=== PATIENT | male | born 1955 | race Caucasian/White ===

== ENCOUNTER 2020-10-25 08:50 | Inpatient (IN) | payer MEDICARE ==
[2020-10-25] MEDS ORDERED: Nitroglycerin 2% Ointment 1 INCH/1 GM Packet ONE (09:50)
[2020-10-25 10:29] LABS: CKMB 36.3 ng/mL (0-6.6)
[2020-10-25] MEDS ORDERED: Sodium Chloride 0.9% 1,000 ML IV SCH ×2 (11:45→15:00)
[2020-10-25] MEDS ORDERED: Iopamidol 370 76% 100 ML VIAL ONE (11:57)
[2020-10-25 13:07] LABS: Troponin I 4.214 ng/mL (< 0.028)
[2020-10-25] MEDS ORDERED: Guaifenesin DM 100-10/5 ML UDCUP PO PRN (13:08)
[2020-10-25] MEDS ORDERED: Acetaminophen 325 MG TAB PO PRN (13:08)
[2020-10-25] MEDS ORDERED: Ondansetron PF 4 MG/2 ML Vial IVP PRN (13:08)
[2020-10-25] MEDS ORDERED: Senokot S 8.6-50 MG TAB PO PRN (13:08)
[2020-10-25] MEDS ORDERED: Bisacodyl 10 MG SUPP PR PRN (13:08)
[2020-10-25] MEDS ORDERED: Zolpidem Tartrate 5 MG TAB PO PRN (13:08)
[2020-10-25] MEDS ORDERED: Calcium Carbonate 500 MG ChewTAB PO PRN (13:08)
[2020-10-25] MEDS ORDERED: Ondansetron ODT 4 MG TAB PO PRN (13:08)
[2020-10-25] MEDS ORDERED: HYDROcodone/Acetaminophen 5/325 mg Tablet PO PRN (13:08)
[2020-10-25] MEDS ORDERED: Loperamide HCl 2 MG CAP PO PRN (13:08)
[2020-10-25 13:30] VITALS: BMI 31.8
[2020-10-25] MEDS ORDERED: Lidocaine 1% (PF) 30 ML VIAL ONE (13:44)
[2020-10-25] MEDS ORDERED: Fentanyl 100 MCG/2 ML VIAL ONE (14:16)
[2020-10-25] MEDS ORDERED: Midazolam HCl 2 mg/2 ml Vial ONE (14:17)
[2020-10-25] MEDS ORDERED: Acetaminophen/Codeine 30-300mg Tablet PO PRN (14:47)
[2020-10-25] MEDS ORDERED: Milk Of Magnesia 30 ML UDCUP PO PRN (14:47)
[2020-10-25] MEDS ORDERED: Carvedilol 3.125 MG TAB ONE (16:50)
[2020-10-25] MEDS: Carvedilol 3.125 MG TAB PO SCH (16:53)
[2020-10-25] MEDS ORDERED: Communication Order-Pharmacy FS SCH (16:55)
[2020-10-25] MEDS: Furosemide 40 MG/4 ML VIAL SLOW IVP SCH (19:12)
[2020-10-25] MEDS ORDERED: Enoxaparin Sodium 40 MG/0.4 ML SYRINGE SC SCH (21:00)
[2020-10-25] MEDS ORDERED: Atorvastatin Calcium 40 MG TAB PO SCH (21:00)
[2020-10-25] MEDS ORDERED: Famotidine 20 MG TAB PO SCH (21:00)
[2020-10-25] MEDS ORDERED: Allopurinol 300 MG TAB PO SCH (21:00)
[2020-10-26] MEDS: Carvedilol 3.125 MG TAB PO SCH (05:30)
[2020-10-26] MEDS ORDERED: Albumin 5% 500 ML ONE (06:28)
[2020-10-26] MEDS ORDERED: Dexmedetomidine 200 MCG/2 ML VIAL ONE (06:33)
[2020-10-26] MEDS: Furosemide 40 MG/4 ML VIAL SLOW IVP SCH (06:33)
[2020-10-26] MEDS ORDERED: Midazolam HCl 5 mg/5 ml Vial ONE (06:33)
[2020-10-26] MEDS ORDERED: Midazolam HCl 2 mg/2 ml Vial ONE (06:33)
[2020-10-26] MEDS ORDERED: Vecuronium 10 MG VIAL ONE ×4 (06:33→09:27)
[2020-10-26] MEDS ORDERED: Fentanyl 100 MCG/2 ML VIAL ONE (06:33)
[2020-10-26] MEDS ORDERED: Heparin 10,000 UNITS/1 ML VIAL 30,000 UNITS in Sodium Chloride 0.9% 1,000 ML FS SCH (08:15)
[2020-10-26] MEDS ORDERED: Lisinopril 10 MG TAB PO SCH (09:00)
[2020-10-26] MEDS ORDERED: Venlafaxine HCl XR 150 MG CAP PO SCH (09:00)
[2020-10-26] MEDS ORDERED: Amlodipine 5 MG TAB PO SCH (09:00)
[2020-10-26] MEDS ORDERED: Aspirin Chewable 81 MG TAB PO SCH ×2 (09:00)
[2020-10-26] MEDS ORDERED: Lidocaine 2% PF 100 mg/5 ml Syringe ONE (09:27)
[2020-10-26] MEDS ORDERED: PROPOFOL 200 MG/20 ML VIAL ONE (09:27)
[2020-10-26] MEDS ORDERED: Nitroglycerin 50 MG/250 ML BOT ONE (09:27)
[2020-10-26] MEDS ORDERED: Thrombin 5000 UNITS/5 ML VIAL ONE (09:27)
[2020-10-26] MEDS ORDERED: Magnesium Sulfate 1 GM/2 ML VIAL ONE (09:27)
[2020-10-26] MEDS ORDERED: Ketorolac Tromethamine 30 MG/ML VIAL ONE (09:27)
[2020-10-26] MEDS ORDERED: Cardioplegic Soln 1,000 ML BAG ONE (09:27)
[2020-10-26] MEDS ORDERED: Sodium Bicarb 50 MEQ/50 ML Abboject 8.4% SYRINGE ONE (09:27)
[2020-10-26] MEDS ORDERED: Calcium Chloride 1 GM/10 ML Abboject SYRINGE ONE (09:27)
[2020-10-26] MEDS ORDERED: Protamine Sulfate 250 MG/25 ML VIAL ONE (09:27)
[2020-10-26] MEDS ORDERED: Lidocaine 1% PF 5 ML VIAL ONE ×2 (09:27)
[2020-10-26] MEDS ORDERED: Heparin 30,000 units/30 ml VIAL ONE (09:27)
[2020-10-26] MEDS ORDERED: PHENYLEPHRINE-NS 100 MCG/ML 10 ML SYRINGE ONE ×4 (09:27→11:49)
[2020-10-26] MEDS ORDERED: Norepinephrine 4 MG/4 ML VIAL ONE (09:27)
[2020-10-26] MEDS ORDERED: Heparin 5,000 UNITS/ML VIAL ONE (09:27)
[2020-10-26] MEDS ORDERED: Mannitol 12.5 GM/50 ML ONE (09:27)
[2020-10-26] MEDS ORDERED: Potassium Chloride 60 MEQ/30 ML VIAL ONE (09:27)
[2020-10-26] MEDS ORDERED: Dexamethasone 20 MG/5 ML VIAL ONE (09:27)
[2020-10-26] MEDS ORDERED: Aminocaproic Acid 5 GM/20 ML VIAL ONE (09:27)
[2020-10-26] MEDS ORDERED: Ondansetron PF 4 MG/2 ML Vial ONE (09:27)
[2020-10-26] MEDS ORDERED: Papaverine 60 MG/2 ML VIAL ONE (09:27)
[2020-10-26] MEDS ORDERED: Milrinone 10 MG/10 ML VIAL ONE (11:16)
[2020-10-26] MEDS ORDERED: Insulin Regular 300 UNITS/3 ML VIAL ONE (11:53)
[2020-10-26 13:42] LABS: Actual Bicarbonate (HCO3a) 23.3 mEq/L (22-28); Base Excess (BEa) -4.7 mEq/L (-2.0 to +3.0); CO2 Tension 56.4 mmHg (35.0-45.0); Calcium, Ionized (arterial) 1.19 mmol/L (1.12-1.30); Carboxyhemoglobin (COHb) 0.6 gm% (0.0-3.0); Hemoglobin (Hb) 12.5 g/dL (14.0-18.0); O2 Tension (PaO2), arterial 78.9 mmHg (> 80.0); Potassium - ABG Lab 4.44 mmol/L (3.70-5.30)
[2020-10-26 13:46] LABS: Puncture Site Arterial Line; pH, Arterial 7.23 (7.35-7.45)
[2020-10-26 13:53] LABS: Hemoglobin 12.2 g/dL (14.0-18.0); Mean Corpuscular Hemoglobin 33.8 pg (27.0-31.0); Mean Corpuscular Volume 96.5 fL (78.0-98.0); Mean Platelet Volume 6.5 fL (7.4-10.4); Platelet Count 203 thou/uL (130-400); RBC Distribution Width 12.6 % (11.5-14.5); White Blood Cell (WBC) Count 22.8 thou/uL (4.8-10.8)
[2020-10-26] MEDS ORDERED: Ondansetron PF 4 MG/2 ML Vial IVP PRN (13:56)
[2020-10-26] MEDS ORDERED: Mag-Al 1200 mg/1200 mg/30 ML UDCUP PO PRN (13:56)
[2020-10-26] MEDS ORDERED: Hetastarch 6% 500 ML 500 ML IVPB PRN (13:56)
[2020-10-26] MEDS ORDERED: Nitroglycerin 50 MG/250 ML BOT 250 ML IVPB PRN (13:56)
[2020-10-26] MEDS ORDERED: Bisacodyl 10 MG SUPP PR PRN (13:56)
[2020-10-26] MEDS ORDERED: Potassium Chloride 20 MEQ/100 ML PREMIX BAG IVPB PRN (13:56)
[2020-10-26] MEDS ORDERED: Bisacodyl 5 MG TAB PO PRN (13:56)
[2020-10-26] MEDS ORDERED: DOPamine 400 MG/D5W 250 ML 250 ML IVPB PRN (13:56)
[2020-10-26] MEDS ORDERED: Phenylephrine 40 MG in Sodium Chloride 0.9% 250 ML 250 ML IVPB PRN (13:56)
[2020-10-26] MEDS ORDERED: Norepinephrine 8 MG/0.9% NS 250 ML IVPB PRN (13:56)
[2020-10-26] MEDS ORDERED: niCARdipine 25 MG in Sodium Chloride 0.9% 250 ML 250 ML IVPB PRN (13:56)
[2020-10-26] MEDS ORDERED: Post-Op Insulin Drip Protocol IVPB ONE (13:56)
[2020-10-26] MEDS ORDERED: Fentanyl 100 MCG/2 ML VIAL SLOW IVP PRN (13:56)
[2020-10-26] MEDS ORDERED: HYDROcodone/Acetaminophen 5/325 mg Tablet PO PRN (13:56)
[2020-10-26] MEDS ORDERED: Morphine 2 MG/ML VIAL SLOW IVP PRN (13:56)
[2020-10-26] MEDS ORDERED: Magnesium 2 GM/50 ML 2 GM in Premix Bag 1 BAG IVPB SCH (13:56)
[2020-10-26] MEDS ORDERED: Promethazine HCl 25 MG/ML VIAL IM PRN (13:56)
[2020-10-26 13:58] LABS: INR-International Normal Ratio 1.3; PTT 30.2 sec (22.9-36.1)
[2020-10-26 14:08] LABS: Band 36 % (5-11); Lymphocytes 3 % (21-51); MDiff Complete? YES; Monocytes 6 % (0-10); Neutrophil 55 % (42-75); Platelet Morphology Comment Appears Adequate; Polychromasia SLIGHT = 2-3 cells (100X) (0-2/hpf)
[2020-10-26 14:12] LABS: Anion Gap 16 mmol/L (10-20); BUN (Urea Nitrogen) 19 mg/dL (8.4-25.7); Calc. Creatinine Clearance 93 mL/min (70-130); Calcium 8.3 mg/dL (7.8-10.44); Carbon Dioxide 21 mmol/L (23-31); Chloride 108 mmol/L (98-107); Glucose 157 mg/dL (80-115); Potassium 4.5 mmol/L (3.5-5.1); Sodium 140 mmol/L (136-145)
[2020-10-26] MEDS ORDERED: HUMULIN R 100 UNITS in Sodium Chloride 0.9% 100 ML IVPB SCH (14:15)
[2020-10-26] MEDS ORDERED: Dextrose 5% in Water 1,000 ML IV PRN (14:15)
[2020-10-26] MEDS ORDERED: Dextrose 50% Abboject 50 ML SYRINGE SLOW IVP PRN (14:15)
[2020-10-26] MEDS ORDERED: Insulin Regular 300 UNITS/3 ML VIAL SC PRN (14:15)
[2020-10-26] MEDS: Lactated Ringer's 1,000 ML IV SCH (14:37)
[2020-10-26] MEDS ORDERED: CEFAZOLIN 2 GM in Premix Bag 1 BAG IVPB SCH (16:00)
[2020-10-26 17:24] LABS: Actual Bicarbonate (HCO3a) 20.5 mEq/L (22-28); Base Excess (BEa) -3.9 mEq/L (-2.0 to +3.0); CO2 Tension 35.2 mmHg (35.0-45.0); Calcium, Ionized (arterial) 1.12 mmol/L (1.12-1.30); Carboxyhemoglobin (COHb) 0.5 gm% (0.0-3.0); Hemoglobin (Hb) 11.3 g/dL (14.0-18.0); O2 Tension (PaO2), arterial 76.4 mmHg (> 80.0); Potassium - ABG Lab 4.44 mmol/L (3.70-5.30); pH, Arterial 7.38 (7.35-7.45)
[2020-10-26 17:27] LABS: Puncture Site Arterial Line
[2020-10-26] MEDS: Ketorolac Tromethamine 30 MG/ML VIAL IVP SCH ×2 (17:47→23:07)
[2020-10-26] MEDS ORDERED: Digoxin 0.5 MG/2 ML AMP SLOW IVP SCH (18:30)
[2020-10-26] MEDS: HYDROcodone/Acetaminophen 5/325 mg Tablet PO PRN ×2 (19:13→23:13)
[2020-10-26 19:46] LABS: Hemoglobin 10.7 g/dL (14.0-18.0)
[2020-10-26 20:05] LABS: Potassium 4.7 mmol/L (3.5-5.1)
[2020-10-26] MEDS: Famotidine/PF 20 mg/2ml Vial SLOW IVP SCH (20:09)
[2020-10-26] MEDS: Fentanyl 100 MCG/2 ML VIAL SLOW IVP PRN (20:46)
[2020-10-26] MEDS ORDERED: Atorvastatin Calcium 20 MG TAB PO SCH (21:00)
[2020-10-26] MEDS ORDERED: Famotidine/PF 20 mg/2ml Vial SLOW IVP SCH (21:00)
[2020-10-26] MEDS: CEFAZOLIN 2 GM in Premix Bag 1 BAG IVPB SCH (23:06)
[2020-10-27] MEDS: Fentanyl 100 MCG/2 ML VIAL SLOW IVP PRN ×3 (01:33→07:40)
[2020-10-27 04:24] LABS: Hemoglobin A1c 5.7 % (4.0-6.0)
[2020-10-27 04:29] LABS: #Lymphocytes 0.7 thou/uL (1.20-3.40); #Neutrophils 8.6 thou/uL (1.40-6.50); %Basophils 0.1 % (0.0-1.0); %Eosinophils 0.1 % (0.0-10.0); %Lymphocytes 6.8 % (21.0-51.0); %Monocytes 9.5 % (0.0-10.0); %Neutrophils 83.5 % (42.0-75.0); Hemoglobin 11.3 g/dL (14.0-18.0); Mean Corpuscular Hemoglobin 33.9 pg (27.0-31.0); Mean Corpuscular Volume 96.8 fL (78.0-98.0); Mean Platelet Volume 6.7 fL (7.4-10.4); Platelet Count 146 thou/uL (130-400); RBC Distribution Width 12.7 % (11.5-14.5); Red Blood Cell (RBC) Count 3.33 mill/uL (4.70-6.10); White Blood Cell (WBC) Count 10.3 thou/uL (4.8-10.8)
[2020-10-27 04:34] LABS: Anion Gap 13 mmol/L (10-20); BUN (Urea Nitrogen) 21 mg/dL (8.4-25.7); Calc. Creatinine Clearance 103 mL/min (70-130); Calcium 8.3 mg/dL (7.8-10.44); Carbon Dioxide 22 mmol/L (23-31); Chloride 106 mmol/L (98-107); Glucose 127 mg/dL (80-115); Potassium 4.2 mmol/L (3.5-5.1); Sodium 137 mmol/L (136-145)
[2020-10-27] MEDS: hydrALAZINE 20 MG/ML VIAL SLOW IVP PRN ×2 (04:39→09:16)
[2020-10-27] MEDS: Lactated Ringer's 1,000 ML IV SCH (04:40)
[2020-10-27] MEDS ORDERED: Morphine 4 MG/ML VIAL ONE (05:03)
[2020-10-27] MEDS: Ketorolac Tromethamine 30 MG/ML VIAL IVP SCH ×4 (05:05→21:03)
[2020-10-27] MEDS ORDERED: Morphine 4 MG/ML VIAL SLOW IVP SCH (05:15)
[2020-10-27] MEDS: CEFAZOLIN 2 GM in Premix Bag 1 BAG IVPB SCH ×2 (07:43→14:02)
[2020-10-27] MEDS: Guaifenesin DM 100-10/5 ML UDCUP PO PRN (07:56)
[2020-10-27] MEDS: Famotidine/PF 20 mg/2ml Vial SLOW IVP SCH ×2 (08:24→19:48)
[2020-10-27] MEDS: HYDROcodone/Acetaminophen 5/325 mg Tablet PO PRN ×3 (08:25→18:28)
[2020-10-27] MEDS: Aspirin 325 MG TAB PO SCH (08:26)
[2020-10-27] MEDS: Polyethylene Glycol 3350 17 GM Packet PO SCH (08:27)
[2020-10-27] MEDS ORDERED: Digoxin 0.5 MG/2 ML AMP SLOW IVP SCH (09:00)
[2020-10-27] MEDS ORDERED: hydrALAZINE 20 MG/ML VIAL SLOW IVP PRN (09:40)
[2020-10-27] MEDS ORDERED: Amlodipine 5 MG TAB PO SCH (09:45)
[2020-10-27] MEDS ORDERED: Furosemide 40 MG/4 ML VIAL SLOW IVP SCH (09:45)
[2020-10-27] MEDS ORDERED: Allopurinol 300 MG TAB PO SCH (09:45)
[2020-10-27] MEDS ORDERED: Carvedilol 3.125 MG TAB PO SCH (09:45)
[2020-10-27] MEDS ORDERED: Venlafaxine XR 37.5 MG CAP PO SCH (10:00)
[2020-10-27] MEDS ORDERED: Venlafaxine HCl XR 150 MG CAP PO SCH (10:00)
[2020-10-27] MEDS: Niacin 500 MG TAB PO SCH ×3 (14:02→19:44)
[2020-10-27] MEDS: Gabapentin 400 MG CAP PO SCH ×2 (14:03→19:44)
[2020-10-27] MEDS: Icosapent Ethyl 1 GM CAPSULE PO SCH (17:05)
[2020-10-27] MEDS: Carvedilol 3.125 MG TAB PO SCH (17:05)
[2020-10-27] MEDS: Atorvastatin Calcium 40 MG TAB PO SCH (19:44)
[2020-10-28] MEDS ORDERED: Amiodarone 150 MG, Admixture Fee 1 EACH in Dextrose 5% in Water 100 ML IVPB SCH (00:15)
[2020-10-28] MEDS: Amiodarone 450 MG, Admixture Fee 1 EACH in Dextrose 5% in Water 250 ML IVPB SCH ×2 (00:24→12:18)
[2020-10-28] MEDS: HYDROcodone/Acetaminophen 5/325 mg Tablet PO PRN ×5 (00:40→20:30)
[2020-10-28] MEDS: Ketorolac Tromethamine 30 MG/ML VIAL IVP SCH ×4 (03:35→22:06)
[2020-10-28] MEDS: Acetaminophen 325 MG TAB PO PRN ×2 (03:45→22:07)
[2020-10-28 04:38] LABS: #Basophils 0.1 thou/uL (0.0-0.2); #Eosinphils 0.1 thou/uL (0.0-0.7); #Lymphocytes 1.4 thou/uL (1.20-3.40); #Monocytes 1.1 thou/uL (0.11-0.59); #Neutrophils 7.1 thou/uL (1.40-6.50); %Basophils 0.6 % (0.0-1.0); %Eosinophils 0.8 % (0.0-10.0); %Lymphocytes 14.3 % (21.0-51.0); %Monocytes 10.9 % (0.0-10.0); %Neutrophils 73.4 % (42.0-75.0); Hemoglobin 10.3 g/dL (14.0-18.0); Mean Corpuscular HGB CONC 34.2 g/dL (32.0-36.0); Mean Corpuscular Hemoglobin 33.4 pg (27.0-31.0); Mean Corpuscular Volume 97.7 fL (78.0-98.0); Mean Platelet Volume 6.9 fL (7.4-10.4); Platelet Count 144 thou/uL (130-400); RBC Distribution Width 12.8 % (11.5-14.5); Red Blood Cell (RBC) Count 3.09 mill/uL (4.70-6.10); White Blood Cell (WBC) Count 9.6 thou/uL (4.8-10.8)
[2020-10-28 04:53] LABS: Anion Gap 14 mmol/L (10-20); BUN (Urea Nitrogen) 30 mg/dL (8.4-25.7); Calc. Creatinine Clearance 96 mL/min (70-130); Calcium 8.4 mg/dL (7.8-10.44); Carbon Dioxide 23 mmol/L (23-31); Chloride 104 mmol/L (98-107); Glucose 121 mg/dL (80-115); Potassium 3.9 mmol/L (3.5-5.1); Sodium 137 mmol/L (136-145)
[2020-10-28] MEDS: Gabapentin 400 MG CAP PO SCH ×3 (08:56→19:55)
[2020-10-28] MEDS: Icosapent Ethyl 1 GM CAPSULE PO SCH ×2 (08:57→16:12)
[2020-10-28] MEDS: Famotidine/PF 20 mg/2ml Vial SLOW IVP SCH (08:57)
[2020-10-28] MEDS: Allopurinol 300 MG TAB PO SCH (08:58)
[2020-10-28] MEDS: Aspirin 325 MG TAB PO SCH (08:58)
[2020-10-28] MEDS: Carvedilol 3.125 MG TAB PO SCH ×2 (08:58→16:12)
[2020-10-28] MEDS: Lisinopril 10 MG TAB PO SCH (08:58)
[2020-10-28] MEDS: Niacin 500 MG TAB PO SCH ×4 (08:59→20:26)
[2020-10-28] MEDS: Guaifenesin DM 100-10/5 ML UDCUP PO PRN (08:59)
[2020-10-28] MEDS ORDERED: DIGOXIN 0.05 MG/ML PO SCH (09:00)
[2020-10-28] MEDS ORDERED: Losartan 25 MG TAB PO SCH (09:00)
[2020-10-28] MEDS ORDERED: Amlodipine 5 MG TAB PO SCH (09:00)
[2020-10-28] MEDS: Polyethylene Glycol 3350 17 GM Packet PO SCH (09:22)
[2020-10-28] MEDS: Venlafaxine HCl XR 150 MG CAP PO SCH (10:32)
[2020-10-28] MEDS: Venlafaxine XR 37.5 MG CAP PO SCH (10:33)
[2020-10-28] MEDS: Digoxin 0.25 MG TAB PO SCH (12:17)
[2020-10-28] MEDS ORDERED: Milk Of Magnesia 30 ML UDCUP PO PRN (15:59)
[2020-10-28] MEDS ORDERED: Mag-Al 1200 mg/1200 mg/30 ML UDCUP PO PRN (15:59)
[2020-10-28] MEDS ORDERED: Bisacodyl 10 MG SUPP PR PRN (15:59)
[2020-10-28] MEDS ORDERED: Mineral Oil ENEMA PR PRN (15:59)
[2020-10-28] MEDS ORDERED: Zolpidem Tartrate 5 MG TAB PO PRN (15:59)
[2020-10-28] MEDS ORDERED: diphenhydrAMINE 25 MG CAP PO PRN (15:59)
[2020-10-28] MEDS ORDERED: Guaifenesin DM 100-10/5 ML UDCUP PO PRN (15:59)
[2020-10-28] MEDS ORDERED: Bisacodyl 5 MG TAB PO PRN (15:59)
[2020-10-28] MEDS ORDERED: Nitroglycerin 0.4 MG TAB (25 Tab Bottle) SL PRN (15:59)
[2020-10-28] MEDS ORDERED: Clopidogrel Bisulfate 75 MG TAB PO SCH (17:15)
[2020-10-28] MEDS: Atorvastatin Calcium 40 MG TAB PO SCH (19:55)
[2020-10-29] MEDS: Amiodarone 450 MG, Admixture Fee 1 EACH in Dextrose 5% in Water 250 ML IVPB SCH (00:02)
[2020-10-29] MEDS: Ketorolac Tromethamine 30 MG/ML VIAL IVP SCH ×4 (03:16→21:30)
[2020-10-29] MEDS: Gabapentin 400 MG CAP PO SCH ×3 (08:21→21:29)
[2020-10-29] MEDS: Venlafaxine XR 37.5 MG CAP PO SCH (08:21)
[2020-10-29] MEDS: Digoxin 0.25 MG TAB PO SCH (08:21)
[2020-10-29] MEDS: Aspirin 81 mg Enteric Coated Tablet PO SCH (08:21)
[2020-10-29] MEDS: Potassium Chloride 10 MEQ TAB PO SCH (08:21)
[2020-10-29] MEDS: Lisinopril 10 MG TAB PO SCH (08:23)
[2020-10-29] MEDS: Allopurinol 300 MG TAB PO SCH (08:23)
[2020-10-29] MEDS: Venlafaxine HCl XR 150 MG CAP PO SCH (08:24)
[2020-10-29] MEDS: Carvedilol 3.125 MG TAB PO SCH ×2 (08:24→16:50)
[2020-10-29] MEDS: Clopidogrel Bisulfate 75 MG TAB PO SCH (08:24)
[2020-10-29] MEDS: Niacin 500 MG TAB PO SCH ×4 (08:24→21:30)
[2020-10-29] MEDS: Polyethylene Glycol 3350 17 GM Packet PO SCH (08:25)
[2020-10-29] MEDS: Icosapent Ethyl 1 GM CAPSULE PO SCH ×2 (08:25→16:52)
[2020-10-29] MEDS ORDERED: Furosemide 40 MG TAB PO SCH (09:00)
[2020-10-29] MEDS: HYDROcodone/Acetaminophen 5/325 mg Tablet PO PRN ×2 (09:13→21:29)
[2020-10-29] MEDS ORDERED: Senokot S 8.6-50 MG TAB PO PRN (13:13)
[2020-10-29] MEDS: Amiodarone 200 MG TAB PO SCH (21:29)
[2020-10-29] MEDS: Atorvastatin Calcium 40 MG TAB PO SCH (21:29)
[2020-10-30] MEDS: Ketorolac Tromethamine 30 MG/ML VIAL IVP SCH (03:57)
[2020-10-30] MEDS ORDERED: Furosemide 40 MG TAB PO SCH (06:34)
[2020-10-30 07:40] VITALS: BP 142/66; TEMP 98.5
[2020-10-30] MEDS: Allopurinol 300 MG TAB PO SCH (07:41)
[2020-10-30] MEDS: Potassium Chloride 10 MEQ TAB PO SCH (07:41)
[2020-10-30] MEDS: Clopidogrel Bisulfate 75 MG TAB PO SCH (07:41)
[2020-10-30] MEDS: Aspirin 81 mg Enteric Coated Tablet PO SCH (07:41)
[2020-10-30] MEDS: Amiodarone 200 MG TAB PO SCH (07:41)
[2020-10-30] MEDS: Niacin 500 MG TAB PO SCH (07:42)
[2020-10-30] MEDS: Gabapentin 400 MG CAP PO SCH (07:42)
[2020-10-30] MEDS: Carvedilol 3.125 MG TAB PO SCH (07:43)
[2020-10-30] MEDS: Polyethylene Glycol 3350 17 GM Packet PO SCH (07:44)
[2020-10-30] MEDS: Venlafaxine XR 37.5 MG CAP PO SCH (07:44)
[2020-10-30] MEDS: Venlafaxine HCl XR 150 MG CAP PO SCH (07:44)
[2020-10-30] MEDS ORDERED: Lisinopril 10 MG TAB PO SCH (09:00)
[2020-10-30] MEDS: Icosapent Ethyl 1 GM CAPSULE PO SCH (09:08)
[2020-10-30] MEDS: HYDROcodone/Acetaminophen 5/325 mg Tablet PO PRN (09:10)
== END 2020-10-30 12:39 | disposition home or self-care (01) | DRG 234 ==
LOC: ERS 08:50 → ERHOLD 09:42 → 2NO 13:00 → CCU 10-26 10:43 → 2NO 10-29 06:55
PROVIDERS: ADMIT Internal Medicine; ATTEND Family Medicine
PROC: 4A023N7 Measurement of Cardiac Sampling and Pressure, Left Heart, Percutaneous Approach (ICD-10-PCS; principal; 2020-10-25)
PROC: B2111ZZ Fluoroscopy of Multiple Coronary Arteries using Low Osmolar Contrast (ICD-10-PCS; 2020-10-25)
PROC: 021109W Bypass Coronary Artery, Two Arteries from Aorta with Autologous Venous Tissue, Open Approach (ICD-10-PCS; 2020-10-27)
PROC: 02100Z9 Bypass Coronary Artery, One Artery from Left Internal Mammary, Open Approach (ICD-10-PCS; 2020-10-27)
PROC: 06BQ3ZZ Excision of Left Saphenous Vein, Percutaneous Approach (ICD-10-PCS; 2020-10-27)
PROC: 5A1221Z Performance of Cardiac Output, Continuous (ICD-10-PCS; 2020-10-27)
DX: I21.4 Non-ST elevation (NSTEMI) myocardial infarction (principal); I13.0 Hypertensive heart and chronic kidney disease with heart failure and stage 1 through stage 4 chronic kidney disease, or unspecified chronic kidney disease; Z79.82 Long term (current) use of aspirin; E78.5 Hyperlipidemia, unspecified; M19.90 Unspecified osteoarthritis, unspecified site; F41.9 Anxiety disorder, unspecified; F32.9 Major depressive disorder, single episode, unspecified; F17.220 Nicotine dependence, chewing tobacco, uncomplicated; Z82.49 Family history of ischemic heart disease and other diseases of the circulatory system; N18.31 Chronic kidney disease, stage 3a; I25.110 Atherosclerotic heart disease of native coronary artery with unstable angina pectoris; E66.9 Obesity, unspecified; Z68.32 Body mass index [BMI] 32.0-32.9, adult; I48.0 Paroxysmal atrial fibrillation; I50.9 Heart failure, unspecified; M1A.9XX0 Chronic gout, unspecified, without tophus (tophi); I51.7 Cardiomegaly
CPT/HCPCS: 36415; 36416; 36430; 71045; 76942; 80048; 82550; 82553; 82805; 83036; 83880; 84484; 85025; 85610; 85730; 86850; 86900; 86901; 93005; 93010; 93306; 93458; 94002; 94640; 97139; 99152; J0282; J0360; J0690; J1100; J1160; J1642; J1644; J1815; J1885; J1940; J2001; J2150; J2250; J2260; J2270; J2405; J2440; J2704; J2720; J3010; J3370; J3475; J3480; J3490; J7070; J7620; P9045; Q9967; S0017; S0028